=== PATIENT | male | born 1930 | race Caucasian/White ===

== ENCOUNTER 2017-06-12 00:28 | Emergency (ER) | payer OTHER ==
[~2017-06-12] VITALS: Ht 170.2 cm; Wt 63.0 kg
[2017-06-12] MEDS ORDERED: TAMS0.4C2 PO (00:58)
[2017-06-12] MEDS ORDERED: METO25TA35 PO (00:58)
[2017-06-12 02:00] VITALS: BP 102/49
[2017-06-12 02:01] LABS: HEMATOCRIT 39.6 % (39.2-51.8); HEMOGLOBIN 13.2 g/dL (13.7-18.0)
[2017-06-12 02:07] LABS: BLOOD UREA NITROGEN 24 mg/dL (7-18)
[2017-06-12 02:20] LABS: IS PT STATUS REG ER OR PRE ER? YES
== END 2017-06-12 02:46 | disposition home or self-care (01) ==
LOC: ED 02:40
DX: R00.2 Palpitations (principal); Z88.8 Allergy status to other drugs, medicaments and biological substances
CPT/HCPCS: 36415; 71020; 80048; 82040; 84484; 85025; 93005; 99285